=== PATIENT | female | born 1955 | race Caucasian/White ===

== ENCOUNTER → 2016-05-20 | Outpatient (CLI) | payer OTHER ==
[~2016-05-20] MED LIST: ALPR0.25 PO; AMOX1TAB64 PO; ASPI-188 PO; CELE100C PO; ESOM20CA PO; LACT1CAP24 PO; LISI40TA PO; LISI5TAB7 PO; METO10TA82 PO; METO25TA91 PO; ONDA-39 PO; OXYC-302 PO; POLY17PO5 PO; PRED10TA PO; SIMV20TA PO; SIMV40TA3 PO; SULF1TAB3 PO; TRAM50TA2 PO; TRAZ50TA18 PO; TRAZADONE; VENL75CA PO; [UNRECOGNIZED DRUG - REMARK]; [UNRECOGNIZED DRUG - REMARK]; [UNRECOGNIZED DRUG - REMARK]
== END | disposition home or self-care (01) ==
LOC: WOUND 12:41
PROVIDERS: ATTEND Internal Medicine
DX: T81.89XD Other complications of procedures, not elsewhere classified, subsequent encounter (principal); I10 Essential (primary) hypertension; M19.90 Unspecified osteoarthritis, unspecified site; Z85.3 Personal history of malignant neoplasm of breast; Z93.3 Colostomy status; Z72.89 Other problems related to lifestyle; Y83.8 Other surgical procedures as the cause of abnormal reaction of the patient, or of later complication, without mention of misadventure at the time of the procedure
CPT/HCPCS: 99204

== ENCOUNTER 2017-03-31 08:19 | Emergency (ER) | payer OTHER ==
[~2017-03-31] VITALS: Ht 157.5 cm; Wt 60.0 kg
[~2017-03-31 08:19] MED LIST changes: -ASPI-188 PO; +ASPI-682 PO; +METO25TA35 PO; -ONDA-39 PO; +ONDA4TAB12 PO; +SIMV20TA3 PO; +SULF-169 PO; -SULF1TAB3 PO; -TRAZADONE; +TRAZADONE PO; +VALS1TAB24 PO; +VALS40TA2 PO
[2017-03-31] MEDS ORDERED: SODIUM CHLORIDE 0.9% 1,000 ML IV ONE (08:27)
[2017-03-31] MEDS ORDERED: SODIUM CHLORIDE 0.9% 1,000ML IVBOLUS ONE (08:30)
[2017-03-31] MEDS ORDERED: FAMOTIDINE 20 MG/2 ML IVP ONE (08:30)
[2017-03-31] MEDS ORDERED: ONDANSETRON 2MG/ML, 2ML IVPush ONE (08:30)
[2017-03-31] MEDS ORDERED: HYDROmorphone 1 MG/ML, 1ML ONE (09:05)
[2017-03-31] MEDS ORDERED: ONDANSETRON 2MG/ML, 2ML ONE (09:05)
[2017-03-31] MEDS ORDERED: FAMOTIDINE 20 MG/2 ML ONE (09:05)
[2017-03-31 09:20] VITALS: BP 168/78
[2017-03-31 09:24] LABS: BASOPHILS % (AUTO) 0 % (0-1); EOSINOPHILS # (AUTO) 0.01 x10^3/uL (0-0.4); EOSINOPHILS % (AUTO) 0 % (1-7); LYMPHOCYTES # (AUTO) 0.78 x10^3/uL (1-3.4); LYMPHOCYTES % (AUTO) 7 % (22-44); MD NO; MEAN CORPUSCULAR HEMOGLOBIN 30.3 pg (27.0-34.8); MEAN CORPUSCULAR HGB CONC 33.4 g/dL (32.4-35.8); MEAN CORPUSCULAR VOLUME 90.6 fL (80-100); MEAN PLATELET VOLUME 6.4 fL (7.4-10.4); MONOCYTES # (AUTO) 0.17 x10^3/uL (0.2-0.8); MONOCYTES % (AUTO) 2 % (2-9); NEUTROPHILS # (AUTO) 9.79 x10^3/uL (1.8-6.8); NEUTROPHILS % (AUTO) 91 % (42-75); PLATELET COUNT 245 x10^3/uL (130-400); RED BLOOD COUNT 4.08 x10^6/uL (3.82-5.3); RED CELL DISTRIBUTION WIDTH 14.9 % (9.6-15.2)
[2017-03-31] MEDS ORDERED: HYDROmorphone 1 MG/ML, 1ML IVPush PRN (09:30)
[2017-03-31] MEDS ORDERED: DICYCLOMINE 10 MG/ML, 2ML IM ONE (09:30)
[2017-03-31] MEDS ORDERED: DICYCLOMINE 10 MG/ML, 2ML ONE (09:34)
[2017-03-31 09:37] LABS: ALANINE AMINOTRANSFERASE 22 U/L (12-78); ALBUMIN 3.8 g/dL (3.4-5.0); ANION GAP 7 mmol/L (5-15); CALCIUM 8.3 mg/dL (8.5-10.1); CHLORIDE 104 mmol/L (98-107); CREATININE 0.81 mg/dL (0.55-1.02)
[2017-03-31 09:39] LABS: ALKALINE PHOSPHATASE 80 U/L (45-117); BILIRUBIN,TOTAL 0.5 mg/dL (0.2-1.0); TOTAL PROTEIN 6.8 g/dL (6.4-8.2)
[2017-03-31] MEDS ORDERED: OMNIPAQUE 350 MG/ML, 100ML BOTTLE ONE (11:12)
[2017-03-31] MEDS ORDERED: HYDROmorphone 2 MG/ML, 1ML ONE (12:33)
== END 2017-03-31 12:30 | disposition home or self-care (01) ==
LOC: ED 08:44
DX: K43.5 Parastomal hernia without obstruction or gangrene (principal); E78.00 Pure hypercholesterolemia, unspecified; I10 Essential (primary) hypertension; Z85.3 Personal history of malignant neoplasm of breast; Z93.3 Colostomy status
CPT/HCPCS: 36415; 74021; 74177; 80053; 83690; 85025; 96361; 96372; 96374; 96375; 99285; J0500; J1170; J2405; J7030; Q9967; S0028